=== PATIENT | male | born 1960 | race Caucasian/White ===

== ENCOUNTER → 2016-08-13 | Day surgery (SDC) | payer OTHER | END | disposition home or self-care (01) | LOC: FAS 06:43 | DX: D12.3 Benign neoplasm of transverse colon (principal); K63.5 Polyp of colon; Z88.0 Allergy status to penicillin; Z86.010 Personal history of colon polyps; Z98.890 Other specified postprocedural states; Z87.891 Personal history of nicotine dependence | CPT/HCPCS: 88305; J2704 ==

== ENCOUNTER → 2020-07-26 | Day surgery (SDC) | payer MEDICARE, OTHER ==
[~2020-07-26] VITALS: Ht 175.3 cm; Wt 60.0 kg
[~2020-07-26] MED LIST: OMEPRAZOLE40 MG PO; SYNTHROID50 MCG PO
== END | disposition home or self-care (01) ==
LOC: FAS 07:12
DX: D12.5 Benign neoplasm of sigmoid colon (principal); K62.1 Rectal polyp; K29.50 Unspecified chronic gastritis without bleeding; K21.00 Gastro-esophageal reflux disease with esophagitis, without bleeding; K22.70 Barrett's esophagus without dysplasia; E03.9 Hypothyroidism, unspecified; Z88.0 Allergy status to penicillin
CPT/HCPCS: 88305; J2250; J2704; J7120